=== PATIENT | female | born 1995 | race Two or more races ===

== ENCOUNTER → 2024-06-26 | Outpatient (CLI) | payer OTHER ==
[2024-06-26 13:55] LABS: HEMATOCRIT 32.6 % (36.0-47.0); MEAN CORPUSCULAR HEMOGLOBIN 31.6 pg (27.0-33.0); MEAN CORPUSCULAR HGB CONC 33.7 g/dl (32.0-36.5); MEAN CORPUSCULAR VOLUME 93.7 fl (80.0-96.0); PLATELET COUNT, AUTOMATED 287 10^3/uL (150-450); RED BLOOD COUNT 3.48 10^6/uL (4.00-5.40)
[2024-06-26 14:37] LABS: GLUCOSE CHALLENGE TEST 1 HOUR 73 MG/DL (LESS THAN 140)
[2024-06-26 14:58] LABS: HIV 1&2 SCREEN NEGATIVE (NEGATIVE)
[2024-06-26 15:02] LABS: HEPATITIS C VIRUS ABY INDEX < 0.02 INDEX (<0.8)
[2024-06-26 15:29] LABS: GC DNA AMPLIFICATION NEGATIVE (NEGATIVE)
== END ==
LOC: M PLALAB 10:31
PROVIDERS: ATTEND Obstetrics & Gynecology
DX: O09.30 Supervision of pregnancy with insufficient antenatal care, unspecified trimester (principal); Z3A.00 Weeks of gestation of pregnancy not specified

== ENCOUNTER → 2024-07-10 | Outpatient (CLI) | payer OTHER | LOC: M WHC 13:38 | PROVIDERS: ATTEND Obstetrics & Gynecology | DX: O09.32 Supervision of pregnancy with insufficient antenatal care, second trimester (principal); Z36.87 Encounter for antenatal screening for uncertain dates; Z3A.25 25 weeks gestation of pregnancy ==

== ENCOUNTER → 2024-08-18 | Outpatient (REF) | payer OTHER | LOC: M SFHCWAGY 12:41 | PROVIDERS: ATTEND Specialist | DX: R30.0 Dysuria (principal) ==

== ENCOUNTER → 2024-10-02 | Outpatient (REF) | payer OTHER | LOC: M PLALAB 13:44 | PROVIDERS: ATTEND Nurse Practitioner Family | DX: Z36.85 Encounter for antenatal screening for Streptococcus B (principal); Z3A.37 37 weeks gestation of pregnancy ==

== ENCOUNTER 2024-10-17 06:58 | Inpatient (IN) | payer OTHER ==
[2024-10-17] VITALS (29 sets, daily range): BP systolic 124–199; BP diastolic 63–119; O2SAT 96–97
[~2024-10-17] VITALS: Ht 162.6 cm; Wt 101.4 kg
[2024-10-17] MEDS ORDERED: ACET500P3 PO (07:18)
[2024-10-17] MEDS ORDERED: PRENTAB9 PO (07:18)
[2024-10-17] MEDS ORDERED: FAMO20TA PO (07:20)
[2024-10-17] MEDS ORDERED: VALT500T PO (07:20)
[2024-10-17] MEDS ORDERED: LIDOCAINE 1% MDV 20ML VIAL INFIL PRN (07:40)
[2024-10-17 08:04] LABS: HEMATOCRIT 33.9 % (36.0-47.0); HEMOGLOBIN 11.7 g/dl (12.0-15.5); MEAN CORPUSCULAR HEMOGLOBIN 30.1 pg (27.0-33.0); MEAN CORPUSCULAR HGB CONC 34.5 g/dl (32.0-36.5); MEAN CORPUSCULAR VOLUME 87.1 fl (80.0-96.0); PLATELET COUNT, AUTOMATED 298 10^3/uL (150-450); RED BLOOD COUNT 3.89 10^6/uL (4.00-5.40); WHITE BLOOD COUNT 13.3 10^3/uL (4.0-10.0)
[2024-10-17] MEDS: LR 1,000 ML IV SCH (08:45)
[2024-10-17] MEDS: LACTATED RINGER'S 1000 ML IV STA (08:45)
[2024-10-17] MEDS ORDERED: diphenhydrAMINE 50MG/ML VIAL IV PRN (09:00)
[2024-10-17] MEDS ORDERED: ONDANSETRON 4MG 2ML VIAL IV PRN (09:00)
[2024-10-17] MEDS ORDERED: LR 500 ML IV PRN (09:00)
[2024-10-17] MEDS ORDERED: NALOXONE INJ 0.4MG/1ML VIAL IV PRN (09:00)
[2024-10-17] MEDS ORDERED: ePHEDrine SULFATE 25 MG/5 ML(5MG/ML) SYRINGE IVP PRN (09:00)
[2024-10-17] MEDS ORDERED: EPIDURAL/PCA KEYS XX PRN (09:00)
[2024-10-17 09:11] LABS: HIV 1&2 SCREEN NEGATIVE (NEGATIVE)
[2024-10-17 09:19] LABS: HEPATITIS C VIRUS ABY INDEX 0.12 INDEX (<0.8)
[2024-10-17] MEDS: FENTANYL/ROPIVACAINE/NACL BAG 100 ML EPIDURAL SCH (09:42)
[2024-10-17 10:17] LABS: URIC ACID 6.1 MG/DL (3.1-7.8)
[2024-10-17 10:19] LABS: LDH LACTATE DEHYDROGENASE 186 U/L (120-246)
[2024-10-17 10:20] LABS: ALT/SGPT 14 U/L (7.0-40); AST/SGOT 15 U/L (<34); BILIRUBIN,TOTAL 0.3 MG/DL (0.3-1.2); CREATININE FOR GFR 0.61 MG/DL (0.55-1.30); GLOMERULAR FILTRATION RATE > 60.0 (>60)
[2024-10-17] MEDS: OXYTOCIN DRIP 30 UNITS in IV 1 EA IV SCH ×2 (10:55→13:23)
[2024-10-17] MEDS: OXYTOCIN DRIP 30 UNITS in IV 1 EA IV PRN (12:50)
[2024-10-17] MEDS ORDERED: METHYLERGONOVINE MALEATE 0.2 MG TAB PO PRN (13:00)
[2024-10-17] MEDS ORDERED: DOCUSATE SODIUM 100MG CAPSULE PO PRN (13:00)
[2024-10-17] MEDS ORDERED: ACETAMINOPHEN 500 MG TAB PO PRN (13:00)
[2024-10-17] MEDS ORDERED: IBUPROFEN 600MG TAB PO PRN (13:00)
[2024-10-17] MEDS ORDERED: RHOGAM 300MCG (1500IU) INJ IM SCH (13:00)
[2024-10-17] MEDS ORDERED: DIBUCAINE 1% OINTMENT 30GM TOP PRN (13:00)
[2024-10-17 13:16] LABS: CORD GAS ABE A -2.7; CORD GAS ABE V -3.1; CORD GAS HCO3 A 26.6 MMOL/L; CORD GAS HCO3 V 23.2 MMOL/L; CORD GAS O2 SAT A 50.1 %; CORD GAS O2 SAT V 62.9 %; CORD GAS PCO2 A 64.3 mmHg; CORD GAS PH A 7.235 UNITS; CORD GAS PH V 7.321 UNITS; CORD GAS PO2 A 23.8 mmHg; CORD GAS PO2 V 27.8 mmHg; CORD GAS SBC A 20.9 MMOL/L; CORD GAS SBC V 20.9 MMOL/L; CORD GAS TCO2 A 28.6 MMOL/L; CORD GAS TCO2 V 24.6 MMOL/L
[2024-10-17] MEDS ORDERED: HOME MED LIST COMPLETE! XX SCH (17:45)
[2024-10-17] MEDS: ACETAMINOPHEN 325 MG TAB PO PRN (19:59)
[2024-10-17] MEDS: IBUPROFEN 800 MG TAB PO PRN (23:40)
[2024-10-18 06:15] VITALS: BP 133/78; O2SAT 97
[2024-10-18] MEDS: PRENATAL VITAMINS CHEWABLE TABLET PO SCH (09:00)
[2024-10-19] MEDS ORDERED: MEASLES,MUMPS,RUBELLA VACCINE INJ (MMR-II) SC.IMMUN ONE (09:00)
== END 2024-10-18 16:48 | disposition home or self-care (01) | DRG 560 ==
LOC: M LDO 06:58 → M LDI 07:26 → M OBS 14:56
PROVIDERS: ADMIT Specialist; ATTEND Specialist
PROC: 10E0XZZ Delivery of Products of Conception, External Approach (ICD-10-PCS; principal; 2024-10-17)
PROC: 10907ZC Drainage of Amniotic Fluid, Therapeutic from Products of Conception, Via Natural or Artificial Opening (ICD-10-PCS; 2024-10-17)
DX: O32.6XX0 Maternal care for compound presentation, not applicable or unspecified (principal); O69.1XX0 Labor and delivery complicated by cord around neck, with compression, not applicable or unspecified; Z37.0 Single live birth; Z3A.39 39 weeks gestation of pregnancy

== ENCOUNTER → 2025-06-29 | Outpatient (CLI) | payer OTHER ==
[~2025-06-29] MED LIST: ACET500P3 PO; FAMO20TA PO; PRENTAB9 PO; VALT500T PO
[2025-06-29 12:06] LABS: ESTIMATED AVERAGE GLUCOSE 97.0 MG/DL (60-110)
[2025-06-29 12:28] LABS: TOTAL 25(OH) VITAMIN D 34.4 NG/ML (20.0-100.0)
[2025-06-29 12:30] LABS: ALT/SGPT 15 U/L (7.0-40); AST/SGOT 10 U/L (<34); CALCIUM LEVEL 9.4 MG/DL (8.5-10.1); CARBON DIOXIDE LEVEL 26 MMOL/L (20-31); CHLORIDE LEVEL 108 MMOL/L (98-107); CHOLESTEROL LEVEL 133 MG/DL (<200); CHOLESTEROL RISK RATIO 2.90 (<5); CREATININE FOR GFR 0.76 MG/DL (0.55-1.30); GLOMERULAR FILTRATION RATE > 90.0 (>60); LDL CHOLESTEROL 70.4 MG/DL (<100); NON-HDL-C 87.2 MG/DL; POTASSIUM SERUM 4.3 MMOL/L (3.5-5.1); SODIUM LEVEL 144 MMOL/L (136-145); TRIGLYCERIDES LEVEL 84 MG/DL (<150)
== END ==
LOC: M LAB 11:15
PROVIDERS: ATTEND Student in an Organized Health Care Education/Training Program
DX: E66.811 Obesity, class 1 (principal); Z68.33 Body mass index [BMI] 33.0-33.9, adult; E55.9 Vitamin D deficiency, unspecified

== ENCOUNTER → 2025-07-01 | Outpatient (CLI) | payer OTHER | LOC: M EKG 09:28 | PROVIDERS: ATTEND Student in an Organized Health Care Education/Training Program | DX: I20.9 Angina pectoris, unspecified (principal); Z53.9 Procedure and treatment not carried out, unspecified reason ==

== ENCOUNTER → 2025-07-16 | Outpatient (CLI) | payer OTHER | LOC: M CARPUL 16:00 | PROVIDERS: ATTEND Nurse Practitioner Family | DX: R07.9 Chest pain, unspecified (principal) ==